=== PATIENT | female | born 1990 | race Caucasian/White ===

== ENCOUNTER 2023-01-20 18:03 | Emergency (ER) | payer BC, SELFPAY ==
[2023-01-20 18:08] VITALS: PULSE 96; RESP 18; TEMP 36.4; O2SAT 100; BMI 28.4
--- NOTE | 2023-01-20 18:20 | CT_ITS ---
The [address] [address] Patient Name: WILMER AMOS MRN: [id number] date: 1990 Sex: F Assigned Patient Location: ED.MAIN Current Patient Location: ED.MAIN Accession/Order Number: [id number] Exam Date: 01/20/2023 18:33 Report Date: 01/20/2023 19:12 At the request of: SANTY AVILES Procedure: CT head/brain wo con EXAM: CT head/brain wo con HISTORY: severe headache COMPARISON: None. TECHNIQUE: Noncontrast head CT is performed FINDINGS: No hemorrhage or edema. No mass effect or midline shift. Mastoid air cells and paranasal sinuses otherwise clear. Normal ventricular size. Normal grullon-white matter differentiation CT/CT head/brain wo con IMPRESSION: No acute intracranial abnormality Electronically authenticated by: STEPH MARSH Date: 01/20/2023 19:12
[2023-01-20 18:24] VITALS: BP 104/78
--- NOTE | 2023-01-20 18:29 | ED.GENADUL1 ---
Documented by User: BETSY Gary 01/20/23 19:29 HPI - General Adult General Chief complaint: Headache Stated complaint: HEADACHE Time Seen by Provider: 01/20/23 18:08 Source: patient Mode of arrival: walk-in Limitations: no limitations Related Data Previous Rx's Medication Instructions Recorded ondansetron HCl 4 mg tablet 4 mg PO Q6H PRN nausea and 01/20/23 vomiting #12 tabs Allergies Allergy/AdvReac Type Severity Reaction Status Date / Time fluoxetine [From Prozac] AdvReac Intermediate Verified 01/20/23 18:08 Exam Constitutional Vital Signs, click to edit/add: Last Vital Signs Temp 97.5 F L 01/20/23 18:08 Pulse 96 H 01/20/23 18:08 Resp 18 01/20/23 18:08 BP 104/78 01/20/23 18:24 Pulse Ox 100 01/20/23 18:08 Course Vital Signs Vital signs: Vital Signs Temperature 97.5 F L 01/20/23 18:08 Pulse Rate 96 H 01/20/23 18:08 Respiratory Rate 18 01/20/23 18:08 Pulse Oximetry 100 01/20/23 18:08 Temperature 97.5 F L 01/20/23 18:08 Pulse Rate 96 H 01/20/23 18:08 Respiratory Rate 18 01/20/23 18:08 Blood Pressure 104/78 01/20/23 18:24 Pulse Oximetry 100 01/20/23 18:08 Medical Decision Making [facility] Narrative Medical decision making narrative: patient presents with concerns of migraine headache, states she awoke with symptoms this morning tried to go to work and symptoms came progressively worse. Patient states her last migraine was approximately six months to a year ago. Patient states she cannot recall the last time her migraine was is painful and rates it a 10/10 but not the worst headache of her life. Patient notes light sensitivity and noise sensitivity. 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 Patient sees neurology at and has not started any medication due to the infrequency of her symptoms. Patient appears uncomfortable, given IV fluid bolus Reglan 10 mg IV, 25 mg Benadryl IV and Toradol 30 mg IV. She denies chance of with prior hysterectomy. Patient reevaluated after head CT scan and notes her pain now is down to a 2/10. She has been sleeping comfortably and easily arousable. Patient agreeable to discharge home with symptom improvement. She'll be given a note for work. The patient is to followup with primary care physician/neurology in next 2-3 days or to return to the emergency department should any of the signs or symptoms worsen or new symptoms develop. Patient had questions answered. The patient agrees with the following Diagnosis and Treatment plan and the patient will be discharged home. Lab Data Labs: Lab Results 01/20/23 Range/Units 18:25 WBC 9.7 (4.0-11.0) 10^3/uL RBC 4.23 (4.20-5.40) 10^6/uL Hgb 13.2 (12.0-16.0) g/dL Hct 38.7 (36.0-48.0) % MCV 91.5 (81.0-99.0) fL MCH 31.2 (26.7-34.0) pg MCHC 34.1 (29.9-35.2) g/dL RDW 11.8 (11.0-15.0) % Plt Count 400 (150-450) 10^3/uL MPV 9.1 L (9.5-13.5) fL Neut % (Auto) 62.0 (43.0-75.0) % Lymph % (Auto) 28.4 (20.5-60.0) % Baylor % (Auto) 7.9 (1.7-12.0) % Eos % (Auto) 1.2 (0.9-7.0) % Baso % (Auto) 0.2 (0.2-2.0) % Neut # (Auto) 6.0 (1.4-6.5) 10^3/uL Lymph # (Auto) 2.8 (1.2-3.8) 10^3/uL [facility] # (Auto) 0.8 (0.3-0.8) 10^3/uL Eos # (Auto) 0.1 (0.0-0.7) 10^3/uL Baso # (Auto) 0.0 (0.0-0.1) 10^3/uL Abs Immat Gran (auto) 0.03 (0.00-0.03) 10^3/uL Imm/Tot Granulo (auto) 0.3 (0.0-0.5) % Sodium 141 (136-145) mmol/L Potassium 3.6 (3.5-5.1) mmol/L Chloride 105 (98-107) mmol/L Carbon Dioxide 25.3 (21.0-32.0) mmol/L Anion Gap 14.3 BUN 15.0 (7.0-18.0) mg/dL Creatinine 0.62 (0.55-1.02) mg/dL Est GFR ( Amer) >60 (>=60) Est GFR (Non-Af Amer) >60 (>=60) BUN/Creatinine Ratio 24.2 Glucose 92 (74-106) mg/dL Calcium 9.0 (8.5-10.1) mg/dL Imaging Data CT scan - head: Radiologist's impression: At the request of: SANTY AVILES Procedure: CT head/brain wo con EXAM: CT head/brain wo con HISTORY: severe headache COMPARISON: None. TECHNIQUE: Noncontrast head CT is performed FINDINGS: No hemorrhage or edema. No mass effect or midline shift. Mastoid air cells and paranasal sinuses otherwise clear. Normal ventricular size. Normal grullon-white matter differentiation IMPRESSION: No acute intracranial abnormality Electronically authenticated by: STEPH MARSH Date: 01/20/2023 19:12 Discharge Plan Discharge Chief Complaint: Headache Clinical Impression: Migraine, Headache Patient Disposition: Home, Self-Care Time of Disposition Decision: 19:26 Condition: Good Mode of Transportation: Private Vehicle Prescriptions / Home Meds: New ondansetron HCl 4 mg tablet 4 mg PO Q6H PRN (Reason: nausea and vomiting) Qty: 12 0RF Instructions: Migraine Headache (ED) Stand Alone Forms: Portal Instructions Referrals: [facility] [Physician] - 1 week ELANA FARLEY [Primary Care Provider] - 1 week Discharge Date/Time: 01/20/23 20:03 Documented by User: Grace Dawson MD 01/21/23 05:38 HPI - General Adult General Chief complaint: Headache Stated complaint: HEADACHE Time Seen by Provider: 01/20/23 18:08 Related Data Previous Rx's Medication Instructions Recorded ondansetron HCl 4 mg tablet 4 mg PO Q6H PRN nausea and 01/20/23 vomiting #12 tabs Allergies Allergy/AdvReac Type Severity Reaction Status Date / Time fluoxetine [From Prozac] AdvReac Intermediate Verified 01/20/23 18:08 Exam Constitutional Vital Signs, click to edit/add: Last Vital Signs Temp 97.5 F L 01/20/23 18:08 Pulse 96 H 01/20/23 18:08 Resp 18 01/20/23 18:08 BP 104/78 01/20/23 18:24 Pulse Ox 100 01/20/23 18:08 Course Vital Signs Vital signs: Vital Signs Temperature 97.5 F L 01/20/23 18:08 Pulse Rate 96 H 01/20/23 18:08 Respiratory Rate 18 01/20/23 18:08 Pulse Oximetry 100 01/20/23 18:08 Temperature 97.5 F L 01/20/23 18:08 Pulse Rate 96 H 01/20/23 18:08 Respiratory Rate 18 01/20/23 18:08 Blood Pressure 104/78 01/20/23 18:24 Pulse Oximetry 100 01/20/23 18:08 Medical Decision Making [facility] Narrative Medical decision making narrative: patient presents with concerns of migraine headache, states she awoke with symptoms this morning tried to go to work and symptoms came progressively worse. Patient states her last migraine was approximately six months to a year ago. Patient states she cannot recall the last time her migraine was is painful and rates it a 10/10 but not the worst headache of her life. Patient notes light sensitivity and noise sensitivity. 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 Patient sees neurology at and has not started any medication due to the infrequency of her symptoms. Patient appears uncomfortable, given IV fluid bolus Reglan 10 mg IV, 25 mg Benadryl IV and Toradol 30 mg IV. She denies chance of with prior hysterectomy. Patient reevaluated after head CT scan and notes her pain now is down to a 2/10. She has been sleeping comfortably and easily arousable. Patient agreeable to discharge home with symptom improvement. She'll be given a note for work. The patient is to followup with primary care physician/neurology in next 2-3 days or to return to the emergency department should any of the signs or symptoms worsen or new symptoms develop. Patient had questions answered. The patient agrees with the following Diagnosis and Treatment plan and the patient will be discharged home. Attending physician attestation I have reviewed the mid-level documentation, agree with the documentation, medical decision making and treatment plan as outlined by the mid-level provider. Lab Data Labs: Lab Results 01/20/23 Range/Units 18:25 WBC 9.7 (4.0-11.0) 10^3/uL RBC 4.23 (4.20-5.40) 10^6/uL Hgb 13.2 (12.0-16.0) g/dL Hct 38.7 (36.0-48.0) % MCV 91.5 (81.0-99.0) fL MCH 31.2 (26.7-34.0) pg MCHC 34.1 (29.9-35.2) g/dL RDW 11.8 (11.0-15.0) % Plt Count 400 (150-450) 10^3/uL MPV 9.1 L (9.5-13.5) fL Neut % (Auto) 62.0 (43.0-75.0) % Lymph % (Auto) 28.4 (20.5-60.0) % Baylor % (Auto) 7.9 (1.7-12.0) % Eos % (Auto) 1.2 (0.9-7.0) % Baso % (Auto) 0.2 (0.2-2.0) % Neut # (Auto) 6.0 (1.4-6.5) 10^3/uL Lymph # (Auto) 2.8 (1.2-3.8) 10^3/uL [facility] # (Auto) 0.8 (0.3-0.8) 10^3/uL Eos # (Auto) 0.1 (0.0-0.7) 10^3/uL Baso # (Auto) 0.0 (0.0-0.1) 10^3/uL Abs Immat Gran (auto) 0.03 (0.00-0.03) 10^3/uL Imm/Tot Granulo (auto) 0.3 (0.0-0.5) % Sodium 141 (136-145) mmol/L Potassium 3.6 (3.5-5.1) mmol/L Chloride 105 (98-107) mmol/L Carbon Dioxide 25.3 (21.0-32.0) mmol/L Anion Gap 14.3 BUN 15.0 (7.0-18.0) mg/dL Creatinine 0.62 (0.55-1.02) mg/dL Est GFR ( Amer) >60 (>=60) Est GFR (Non-Af Amer) >60 (>=60) BUN/Creatinine Ratio 24.2 Glucose 92 (74-106) mg/dL Calcium 9.0 (8.5-10.1) mg/dL Discharge Plan Discharge Chief Complaint: Headache Clinical Impression: Migraine, Headache Patient Disposition: Home, Self-Care Time of Disposition Decision: 19:26 Condition: Good Mode of Transportation: Private Vehicle Prescriptions / Home Meds: New ondansetron HCl 4 mg tablet 4 mg PO Q6H PRN (Reason: nausea and vomiting) Qty: 12 0RF Instructions: Migraine Headache (ED) Stand Alone Forms: Portal Instructions Referrals: [facility] [Physician] - 1 week ELANA FARLEY [Primary Care Provider] - 1 week Discharge Date/Time: 01/20/23 20:03
[2023-01-20 18:34] LABS: Basophils Percent Auto 0.2 % (0.2-2.0); Eosinophils Absolute Auto 0.1 10^3/uL (0.0-0.7); Eosinophils Percent Auto 1.2 % (0.9-7.0); Hematocrit 38.7 % (36.0-48.0); Hemoglobin 13.2 g/dL (12.0-16.0); Immature Granulocytes Abs Auto 0.03 10^3/uL (0.00-0.03); Immature Granulocytes Pct Auto 0.3 % (0.0-0.5); Lymphocytes Absolute Auto 2.8 10^3/uL (1.2-3.8); Lymphocytes Percent Auto 28.4 % (20.5-60.0); Mean Corpuscular HGB Conc 34.1 g/dL (29.9-35.2); Mean Corpuscular Hemoglobin 31.2 pg (26.7-34.0); Mean Corpuscular Volume 91.5 fL (81.0-99.0); Mean Platelet Volume 9.1 fL (9.5-13.5); Monocytes Absolute Auto 0.8 10^3/uL (0.3-0.8); Monocytes Percent Auto 7.9 % (1.7-12.0); Platelet Count 400 10^3/uL (150-450); Red Blood Count 4.23 10^6/uL (4.20-5.40); Red Cell Distribution Width 11.8 % (11.0-15.0); White Blood Count 9.7 10^3/uL (4.0-11.0)
[2023-01-20 18:40] LABS: Anion Gap 14.3; BUN Creatinine Ratio 24.2; Carbon Dioxide 25.3 mmol/L (21.0-32.0); Chloride 105 mmol/L (98-107); Estimated GFR (African America >60 (>=60); Estimated GFR (Non-African Ame >60 (>=60); Glucose 92 mg/dL (74-106); Potassium 3.6 mmol/L (3.5-5.1); Sodium 141 mmol/L (136-145)
[2023-01-20] MEDS: KETOROLAC TROMETHAMINE 30 MG/ML VIAL IVP (18:47)
[2023-01-20] MEDS: METOCLOPRAMIDE HCL 10 MG/2 ML VIAL IVP (18:47)
[2023-01-20] MEDS: 0.9 % SODIUM CHLORIDE 1,000 ML 999 ML IV (18:47)
[2023-01-20] MEDS: DIPHENHYDRAMINE HCL 50 MG/ML (1ML) VIAL 25 MG IV (18:48)
== END 2023-01-20 20:03 | disposition home or self-care (01) ==
PROVIDERS: Personal Emergency Response Attendant; Emergency Provider Emergency Medicine; PCP Family Medicine
DX: G43.909 Migraine, unspecified, not intractable, without status migrainosus (principal)
CPT/HCPCS: 36415; 70450; 80048; 85025; 96374; 96375; 99285

== ENCOUNTER 2023-04-24 13:39 | Emergency (ER) | payer BC, SELFPAY ==
[2023-04-24 14:06] VITALS: BP 125/84; PULSE 74; RESP 20; TEMP 36.9; O2SAT 100; BMI 24.4
[2023-04-24 14:18] VITALS: BP 132/97; PULSE 88; RESP 18; TEMP 36.9; O2SAT 100; BMI 23.0
--- NOTE | 2023-04-24 14:24 | XR_ITS ---
The [address] [address] Patient Name: WILMER AMOS MRN: [id number] date: 1990 Sex: F Assigned Patient Location: ER Current Patient Location: ER Accession/Order Number: [id number] Exam Date: 04/24/2023 14:50 Report Date: 04/24/2023 15:15 At the request of: LILIBETH GRIFFIN Procedure: XR wrist RT min 3V IMAGES REVIEWED: XR wrist RT min 3V COMPARISON: None available. CLINICAL INDICATION: pain FINDINGS/IMPRESSION: Slight positive ulnar variance suggested. Otherwise unremarkable radiographic appearance of the right wrist. Electronically authenticated by: JADIEL MCMILLAN Date: 04/24/2023 15:15
--- NOTE | 2023-04-24 14:25 | ED.EXTPRO1 ---
HPI - Extremity Problem General Chief complaint: Extremity Problem, Nontraumatic Stated complaint: UPPER EXTREMITY PAIN RIGHT WRIST Time Seen by Provider: 04/24/23 14:20 Source: patient Mode of arrival: walk-in Limitations: no limitations History of Present Illness HPI Narrative: 32 year old female presents to the ED for pain to her right medial wrist. Onset was a few days ago. Denies fever, chills, injury, weakness, N/T. She has been wearing a brace without improvement. 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 Rates her pain 6/10 at this time. Related Data Previous Rx's Medication Instructions Recorded ondansetron HCl 4 mg tablet 4 mg PO Q6H PRN nausea and 01/20/23 vomiting #12 tabs naproxen 500 mg tablet (Naprosyn) 500 mg PO Q12H PRN pain #14 tabs 04/24/23 Allergies Allergy/AdvReac Type Severity Reaction Status Date / Time fluoxetine [From Prozac] AdvReac Intermediate Verified 04/24/23 14:17 Review of Systems ROS Constitutional Denies: fever or chills Cardiovascular Denies: chest pain Respiratory Denies: shortness of breath Musculoskeletal Reports: extremity pain; Denies: neck pain, extremity swelling or muscle weakness Neurological Denies: numbness in extremities or weakness in extremities PFSH PFSH Social History Smoking status: Never smoker Exam Constitutional Vital Signs, click to edit/add: Last Vital Signs Temp 98.4 F 04/24/23 14:18 Pulse 88 04/24/23 14:18 Resp 18 04/24/23 14:18 BP 132/97 H 04/24/23 14:18 Pulse Ox 100 04/24/23 14:18 O2 Del Method Room Air 04/24/23 14:18 Common normals: no apparent distress and oriented x3 General appearance: cooperative Eye Common normals: no scleral icterus Neck & C-Spine Common normals: supple Chest Chest: symmetrical chest wall rise Respiratory Common normals: normal respiratory effort Effort & inspection: able to speak in complete sentences Cardio Peripheral pulses: radial pulses present and ulnar pulses present Extremity Right upper extremity: wrist Right wrist: palpation (Tenderness to medial wrist. No swelling or deformity.), ROM (Pain increases with movement, palpation. ) and other (No erythema, wounds to right wrist. Distal sensation intact. ) and hand and digits Right hand and digits: ROM exam (Full ROM to right hand, digits.) Course Vital Signs Vital signs: Vital Signs Temperature 98.5 F 04/24/23 14:06 Pulse Rate 74 04/24/23 14:06 Respiratory Rate 20 04/24/23 14:06 Blood Pressure 125/84 04/24/23 14:06 Pulse Oximetry 100 04/24/23 14:06 Oxygen Delivery Method Room Air 04/24/23 14:06 Temperature 98.4 F 04/24/23 14:18 Pulse Rate 88 04/24/23 14:18 Respiratory Rate 18 04/24/23 14:18 Blood Pressure 132/97 H 04/24/23 14:18 Pulse Oximetry 100 04/24/23 14:18 Oxygen Delivery Method Room Air 04/24/23 14:18 MDM - Extremity (Nontraumatic) MDM Narrative Medical decision making narrative: X-ray showed slight positive ulnar variance; otherwise unremarkable images. Findings were discussed with the patient. She has a wrist brace with her that she is going to wear for her discomfort. A prescription was provided for naprosyn. Follow up with Dr. Mathis, orthopedist, for a recheck, further evaluation and treatment. Medical Records Attestation: I reviewed the patient's medical records. Imaging Data Right Wrist X-ray: Attestation: I have reviewed the pertinent imaging results. Radiologist's impression: Procedure: XR wrist RT min 3V IMAGES REVIEWED: XR wrist RT min 3V COMPARISON: None available. CLINICAL INDICATION: pain FINDINGS/IMPRESSION: Slight positive ulnar variance suggested. Otherwise unremarkable radiographic appearance of the right wrist. Electronically authenticated by: JADIEL MCMILLAN Date: 04/24/2023 15:15 Discharge Plan Discharge Chief Complaint: Extremity Problem, Nontraumatic Clinical Impression: Acute wrist pain Patient Disposition: Home, Self-Care Time of Disposition Decision: 15:24 Condition: Good Mode of Transportation: Private Vehicle Prescriptions / Home Meds: New naproxen [Naprosyn] 500 mg tablet 500 mg PO Q12H PRN (Reason: pain) Qty: 14 0RF No Action ondansetron HCl 4 mg tablet 4 mg PO Q6H PRN (Reason: nausea and vomiting) Qty: 12 0RF Instructions: Arthralgia (ED), Wrist Sprain (ED) Additional Instructions: Follow up with Dr. Mathis. Stand Alone Forms: Portal Instructions Referrals: ELANA FARLEY [Primary Care Provider] - 1 week Stevie Mathis MD [Physician] - As soon as possible
--- NOTE | 2023-04-24 14:41 | PC.NURSE ---
Pain to right wrist; slight swelling noted to underside of wrist, pulses present.
== END 2023-04-24 15:29 | disposition home or self-care (01) ==
PROVIDERS: Emergency Provider Emergency Medicine; PCP Family Medicine
DX: M25.531 Pain in right wrist (principal)
CPT/HCPCS: 73110; 99283

== ENCOUNTER 2024-11-30 19:28 | Emergency (ER) | payer BC, SELFPAY ==
[2024-11-30 19:31] VITALS: BP 152/103; PULSE 86; TEMP 36.5; O2SAT 98; BMI 25.6
--- OUTSIDE RECORDS SUMMARY | 2024-11-30 19:39 | XMS_ITS | Encounter Summary ---
Author Organization [facility] Address [address] [facility] [place] [address] Care Team Providers Care Scissors Grinder Name Role Phone Malick Roberts MD Primary Care Provider Candie Kenney NP Unavailable Lacie Bonds [employer] SUPER[employer]OR Unavailable [phone] Lacie Bonds [employer] SUPERVISOR Unavailable [phone] Sowmya Larson [facility] Unavailable Brodie Yoo DO Unavailable Encounter Details Date Type Department Care Team (Late st Contact Info) Description 05/22/2023 Abstract [facility] [address] [place] [address] Ratna Reynoso [employer] SUPER[employer]OR Social History Tobacco Use Types Packs/Day Years Used Date Smoking Tobacco: Never Smokeless Tobacco: Never Tobacco Cessation:Counseling Given: Not Answered Alcohol Use Standard Drinks/Week Comments Yes 0 (1 standard drink = 0.6 oz pure alcohol) 1-2 drinks monthly or less, caffeine intake: more than 4 cups per day, 2 cans pop daily PHQ-2 Answer Date Recorded Patient Health Questionnaire-2 Score 0 01/15/2023 Comments No Sex and Gender Information Value Date Recorded Sex Assigned at Not on file Legal Sex Female 6:45 PM EDT Gender Identity Female 08/15/2022 6:45 PM EDT Sexual Orientation Not on file COVID-19 Exposure Response Date Recorded In the last 10 days, have yo u been in contact with someone who was confirmed or suspected to have Coronavirus/COVID-19? No / Unsure 05/06/2023 1:00 PM EST documented as of this encounter Plan of Treatment Upcoming Encounters Date Type Department Care Team (Late st Contact Info) Description 12/02/2024 3:40 PM EDT Office Visit [facility] [address] [place] [phone] Lacie Bonds, GINA [address] [place] [phone] 10/20/2025 9:30 AM EDT Office Visit [facility] [address] [place] [address] Tatum Castano MD [address] [place] [address] documented as of this encounter Visit Diagnoses Not on filedocumented in this encounter Care Teams Scissors Grinder Relationship Specialty Start Date End Date Malick Roberts MD [address] [place] [address] PCP - General Family Medicine 05/06/23 Lacie Bonds NP [address] [place] [phone] PCP - [employer] 02/02/24 5 Brodie Yoo DO [address] [place] [address] PCP - [employer] 07/04/23 Candie Kenney NP [address] [place] [address] Nurse Practitioner Family Medicine 05/06/23 11/26/24 Lacie Bonds, [employer] SUPERVISOR [address] [place] [address] Nurse Practitioner Pulmonary Disease 05/06/23 Sowmya Larson, [facility] [address] [place] [address] Equipment Scheduler Behavioral Health 06/03/24 documented as of this encounter
--- OUTSIDE RECORDS SUMMARY | 2024-11-30 19:39 | XMS_ITS | Encounter Summary ---
Author Organization [facility] Address [address] [facility] [place] [address] Care Team Providers Care Customizer Name Role Phone [place] DO Primary Care Provider [phone] Malick Roberts MD Primary Care Provider [phone] Candie Kenney RETORT FORKER Unavailable Lacie Bonds RETORT FORKER Unavailable [phone] Lacie Bonds RETORT FORKER Unavailable [phone] Sowmya Larson [facility] Unavailable [phone] Brodie Yoo DO Unavailable [phone] Encounter Details Date Type Department Care Team (Late st Contact Info) Description 03/14/2023 Orders Only [facility] [address] [facility] [address] [place] [address] Barb Guo MA Social History Tobacco Use Types Packs/Day Years Used Date Smoking Tobacco: Never Smokeless Tobacco: Never Alcohol Use Standard Drinks/Week Comments Not Currently 0 (1 standard drink = 0.6 oz pure alcohol) caffeine intake: more than 4 cups per day, 2 cans pop daily PHQ-2 Answer Date Recorded Patient Health Questionnaire-2 Score 0 01/15/2023 Comments Unknown Sex and Gender Information Value Date Recorded Sex Assigned at Not on file Legal Sex Female 6:45 PM EDT Gender Identity Female 08/15/2022 6:45 PM EDT Sexual Orientation Not on file documented as of this encounter Plan of Treatment Upcoming Encounters Date Type Department Care Team (Late st Contact Info) Description 12/02/2024 3:40 PM EDT Office Visit [facility] [address] [place] [phone] Lacie Bonds NP [address] [place] [phone] 10/20/2025 9:30 AM EDT Office Visit [facility] [address] [place] [phone] Tatum Castano MD [address] [place] [address] documented as of this encounter Visit Diagnoses Not on filedocumented in this encounter Care Teams Customizer Relationship Specialty Start Date End Date Mt Smith DO [address] [place] [address] PCP - General Family Medicine 11/14/22 05/05/23 Malick Roberts MD [address] [place] [address] PCP - General Family Medicine 05/06/23 Lacie Bonds RETORT FORKER [address] [place] [phone] PCP - [employer] 02/02/24 5 Brodie Yoo DO [address] [place] [address] PCP - [employer] 07/04/23 Candie Kenney NP [address] [place] [address] Nurse Practitioner Family Medicine 05/06/23 11/26/24 Lacie Bonds, [employer] FORKER [address] [place] [address] Nurse Practitioner Pulmonary Disease 05/06/23 Sowmya Larson, [facility] [address] [place] [address] Wheelchair Driver Behavioral Health 06/03/24 documented as of this encounter
--- OUTSIDE RECORDS SUMMARY | 2024-11-30 19:39 | XMS_ITS | Encounter Summary ---
Author Organization [facility] Address [address] [facility] [place] [address] Care Team Providers Care V Belt Mold Assembler And Curer Name Role Phone Malick Roberts MD Primary Care Provider [phone] Candie Kenney NP Unavailable Lacie Bonds TAPE RECORDING MACHINE OPERATOR Unavailable Sowmya Larson [facility] Unavailable [phone] Encounter Details Date Type Department Care Team (Late st Contact Info) Description 09/07/2024 Orders Only [facility] [address] [place] [address] Lacie Bonds, TAPE RECORDING MACHINE OPERATOR [address] [place] [address] Cough in adult (Primary Dx) Social History Tobacco Use Types Packs/Day Years Used Date Smoking Tobacco: Never Smokeless Tobacco: Never Alcohol Use Standard Drinks/Week Comments Yes 4 (1 standard drink = 0.6 oz pure alcohol) Just a few bloody elvis at home Social Connection and Isolat ion Panel [NHANES] Answer Date Recorded In a typical week, how many times do you talk on the phone with family, friends, or neighbors? More than three times a week 08/05/2023 How often do you get togethe r with friends or relatives? Never 08/05/2023 How often do you attend [facility] or adventist services? Never 08/05/2023 Do you belong to any clubs o r organizations such as rastafari groups, unions, fraternal or athletic groups, or school groups? No 08/05/2023 How often do you attend meet ings of the clubs or organizations you belong to? Never 08/05/2023 Are you , , di vorced, , never , or living with a partner? 08/05/2023 AUDIT-C Answer Date Recorded Q1: How often do you have a drink containing alcohol? Never 08/05/2023 Q2: How many drinks containi ng alcohol do you have on a typical day when you are drinking? Patient does not drink Q3: How often do you have si x or more drinks on one occasion? Less than monthly 08/05/2023 Overall Financial Resource Strain (CARDIA) Answe r Date Recorded How hard is it for you to pa y for the very basics like food, housing, medical care, and heating? Not hard at all 08/05/2023 PHQ-2 Answer Date Recorded Patient Health Questionnaire-2 Score 0 12/04/2023 [facility] - Occupational Stress Questionnaire Answer Date Recorded Do you feel stress - tense, restless, nervous, or anxious, or unable to sleep at night because your mind is troubled all the time - these days? To some extent 08/05/2023 Exercise Vital Sign Answer Date Recorde d On average, how many days pe r week do you engage in moderate to strenuous exercise (like a brisk walk)? 5 days 08/05/2023 On average, how many minutes do you engage in exercise at this level? 150+ min 08/05/2023 Hunger Vital Sign Answer Date Recorded Within the past 12 months, y ou worried that your food would run out before you got the money to buy more. Never true 08/05/19 24 Within the past 12 months, t he food you bought just didn't last and you didn't have money to get more. Never true 08/05/2023 PRAPARE - Transportation Answer Date Re corded In the past 12 months, has l ack of transportation kept you from medical appointments or from getting medications? No 09/2023 In the past 12 months, has l ack of transportation kept you from meetings, work, or from getting things needed for daily living? No 08/05/2023 Housing Stability Vital Sign Answer Jesus e Recorded In the last 12 months, was t here a time when you were not able to pay the mortgage or rent on time? No 08/05/2023 In the last 12 months, how many places have you lived? 1 08/05/2023 In the last 12 months, was t here a time when you did not have a steady place to sleep or slept in a mcc (including now)? No 08/05/2023 Comments No Sex and Gender Information Value [...] Visit [facility] [address] [place] [address] aLcie Bonds NP [address] [place] [address] 10/20/2025 9:30 AM EDT Office Visit [facility] [address] [place] [address] Tatum Castano MD [address] [place] [address] documented as of this encounter Visit Diagnoses Diagnosis Cough in adult- Primary documented in this encounter Care Teams V Belt Mold Assembler And Curer Relationship Specialty Start Date End Date Malick Roberts MD [address] [place] [address] PCP - General Family Medicine 05/06/23 Candie Kenney NP [address] [place] [address] Nurse Practitioner Family Medicine 05/06/23 11/26/24 Lacie Bonds NP [address] [place] [address] Nurse Practitioner Pulmonary Disease 05/06/23 Sowmya Larson, [facility] [address] [place] [address] Wire Dropper Behavioral Health 06/03/24 documented as of this encounter
--- OUTSIDE RECORDS SUMMARY | 2024-11-30 19:39 | XMS_ITS | Clinical Summary ---
Author Organization [facility] Address [address] [place] [address] Phone Care Team Providers Care Registered Clinical Dietitian Name Role Phone Unavailable Primary Care Provider Unavailabl e Allergies Active Allergy Reactions Criticality Noted Date Comments Fluoxetine Other 01/14/2023 Other Reaction(s): Panic Attack Medications amphetamine-dex troamphetamine (Adderall) 20 mg tablet Take 1 tablet (20 mg) by mouth once daily. 06/12/2023 Active amphetamine-dex troamphetamine XR (Adderall XR) 30 mg 24 hr capsule Take 1 capsule (30 mg) by mouth once daily. 05/16/2023 Active valACYclovir (Valtrex) 500 mg tablet Take 1 tablet (500 mg) by mouth 2 times a day. Active rimegepant (Nurtec ODT) 75 mg tablet,disinteg rating Take 1 tablet (75 mg) by mouth if needed (migraine). Active Social History Tobacco Use Types Packs/Day Years Used Date Smoking Tobacco: Never Smokeless Tobacco: Never Tobacco Cessation:Counseling Given: No Comments Unknown Sex and Gender Information Value Date Recorded Sex Assigned at Not on file Legal Sex Female 3:08 PM EST Gender Identity Not on file Sexual Orientation Not on file Plan of Treatment Health Maintenance Due Date Last Done Comments HIV Screening 1989 Yearly Adult Physical 1989 MMR Vaccines (1 of 1 - Stand candy series) 1990 Varicella Vaccines (1 of 2 - 13+ 2-dose series) 2002 Hepatitis C Screening 09/02/2007 Hepatitis B Vaccines (1 of 3 - 19+ 3-dose series) 2008 Cervical Cancer Screening 2010 HPV/Cotest 2010 Pap Smear 2010 COVID-19 Vaccine (1 - 2023-2 5 season) 2024 Influenza Vaccine (Season Ended) 2025 Lipid Panel 08/07/2028 08/08/2023 DTaP/Tdap/Td Vaccines (2 - T d or Tdap) 09/26/2028 09/26/2018 Zoster Vaccines (1 of 2) 09/02/2039 HIB Vaccines Aged Out No longer eligi ble based on patient's age to complete this topic HPV Vaccines (No Doses Required) Completed Hepatitis A Vaccines Aged Out No long er eligible based on patient's age to complete this topic IPV Vaccines Aged Out No longer eligi ble based on patient's age to complete this topic Meningococcal Vaccine Aged Out No carolyn rahul eligible based on patient's age to complete this topic Pneumococcal Vaccine: Pediat rics and At-Risk Adult Patients Aged Out No longer marti gible based on patient's age to complete this topic Rotavirus Vaccines Aged Out No longer eligible based on patient's age to [place] [address] [place] [address] [facility] [place] [address] [facility]
--- OUTSIDE RECORDS SUMMARY | 2024-11-30 19:39 | XMS_ITS | Encounter Summary ---
Author Organization [facility] Address [address] [facility] [facility] [place] [address] Care Team Providers Care Cradle Slide Maker Name Role Phone Malick Roberts MD Primary Care Provider Candie Kenney NP Unavailable Lacie Bonds NATIONAL SALES CONSULTANT Unavailable [phone] Lacie Bonds NATIONAL SALES CONSULTANT Unavailable [facility] Un[facility] Brodie Yoo DO Unavailable Reason for Visit * Reason Onset Date Comments Med Refill 05/15/2023 Encounter Details Date Type Department Care Team (Late st Contact Info) Description 05/15/2023 Refill [facility] [address] [place] [address] Lacie Bonds, NATIONAL SALES CONSULTANT [address] [place] [address] Attention deficit hyperactivity disorder (ADHD), inattentive type, moderate Social History Tobacco Use Types Packs/Day Years Used Date Smoking Tobacco: Never Smokeless Tobacco: Never Alcohol Use Standard Drinks/Week Comments Never 0 (1 standard drink = 0.6 oz [...] PM EST documented as of this encounter Miscellaneous Notes * Telephone Encounter - Lacie Bonds NP - 05/16/2023 8:38 AM EST Approving, but needs appt for additional refills. * Telephone Encounter - Lacie Bonds NP - 05/16/2023 8:37 AM EST Pharmacy called and states they did not receive medication prescription for 30 XR dose. Will resend. * Telephone Encounter - Lacie Bonds NP - 05/15/2023 9:24 AM EST Medication was sent on 05/06/23 and filled on 05/08/23 documented in this encounter Plan of Treatment Upcoming Encounters Date Type Department Care Team (Late st Contact Info) Description 12/02/2024 3:40 PM EDT Office Visit [facility] [address] [place] [id number] Lacie Bonds NP [address] [place] [address] 10/20/2025 9:30 AM EDT Office Visit [facility] [address] [place] [address] Tatum Castano MD [address] [place] [address] documented as of this encounter Visit Diagnoses Diagnosis Attention deficit hyperactivity disorder (ADHD), inattentive type, moderate documented in this encounter Care Teams Cradle Slide Maker Relationship Specialty Start Date End Date Malick Roberts MD [address] [place] [address] PCP - General Family Medicine 05/06/23 Lacie Bonds, NATIONAL SALES CONSULTANT [address] [place] [address] PCP - [place] [employer] 02/02/24 5 Brodie Yoo DO [address] [place] [address] PCP - [place] [employer] 07/04/23 Candie Kenney NP [address] [place] [address] Nurse Practitioner Family Medicine 05/06/23 11/26/24 Lacie Bonds NP [address] [place] [place] [address] Nurse Practitioner Pulmonary Disease 05/06/23 Sowmya Larson, [facility] [address] [place] [address] Auto Technician Mechanic Behavioral Health 06/03/24 documented as of this encounter
--- OUTSIDE RECORDS SUMMARY | 2024-11-30 19:39 | XMS_ITS | Encounter Summary ---
Author Organization [facility] Address [address] [facility] [place] [address] Care Team Providers Care Production Lapping Machine Operator Name Role Phone Malick Roberts MD Primary Care Provider [phone] Candie Kenney NP Unavailable Lacie Bonds INTERFACE ENGINEER Unavailable Lacie Bonds INTERFACE ENGINEER Unavailable Sowmya Larson [facility] Unavailable Brodie Yoo DO Unavailable [phone] Encounter Details Date Type Department Care Team (Late st Contact Info) Description 06/10/2023 External Result Encounter [facility] [address] [place] [address] Ratna Reynoso INTERFACE ENGINEER Social History Tobacco Use Types Packs/Day Years Used Date Smoking Tobacco: Never Smokeless Tobacco: Never Alcohol Use Standard Drinks/Week Comments Yes 0 [...] [facility] [address] [place] [address] Lacie Bonds NP [address] [place] [address] 10/20/2025 9:30 AM EDT Office Visit [facility] [address] [place] [address] Tatum Castano MD [address] [place] [address] documented as of this encounter Procedures Procedure Name Priority Date/Time Associated Diagnosis Comments MR WRIST RIGHT WO IV CONTRAST 06/10/2023 11:34 AM EST documented in this encounter Results * MR wrist right wo IV contrast (06/10/2023 11:34 AM EST) Anatomical Region Laterality Modality Upper Extremities, Wrist Right Magneti c Resonance 06/10/2023 11:3 4 AM EST Narrative 06/10/2023 11:33 AM EST THIS EXAM WAS PERFORMED AT [facility] MRI Right wrist History: Pain. Pain is increasing Comparison: Technique: Multiplanar/multisequence images were obtained without contrast. Findings: Edema in the distal ulna is appreciated the ulna appears dorsally subluxed indicating at least some laxity involving the DRUJ. The adjacent TFCC is abnormal and torn. There is soft tissue edema appreciated as well along the distal ulna. The ligaments are intact. Minimal tenosynovitis involving the extensor carpi ulnaris tendon. The other extensor compartments are uninvolved. Carpal tunnel appears appropriate. No ganglion or synovial cyst. No high-grade chondromalacia or advanced osteoarthropathy is appreciated. Impression: * Reactive edema in the distal ulna is appreciated. The ulna is subluxed dorsally indicating at least laxity to the DRUJ. Injury or laxity to the dorsal plate is suspected. The TFCC is torn. Follow-up with orthopedics is suggested. Please see above discussion. Finalized by Candie Prajapati MD on 06/10/2023 11:33 AM Procedure Note Radiology, Radiologist, MD - 06/10/2023 THIS EXAM WAS PERFORMED AT [facility] Right wrist History: Pain. Pain is increasing Comparison: Technique: Multiplanar/multisequence images were obtained withoutcontrast. Findings: Edema in the distal ulna is appreciated the ulna appears dorsally subluxedindicating at least some laxity involving the DRUJ. The adjacent TFCC isabnormal and torn. There is soft tissue edema appreciated as well alongthe distal ulna. The ligaments are intact. Minimal tenosynovitis involving the extensor carpi ulnaris tendon. Theother extensor compartments are uninvolved. Carpal tunnel appears appropriate. No ganglion or synovial cyst. No high-grade chondromalacia or advanced osteoarthropathy isappreciated. Impression: * Reactive edema in the distal ulna is appreciated. The ulna is subluxeddorsally indicating at least laxity to the DRUJ. Injury or laxity to thedorsal plate is suspected. The TFCC is torn. Follow-up with orthopedicsis suggested. Please see above discussion. Finalized by Candie Prajapati MD on 06/10/2023 11:33 AM Ratna Reynoso NP IMG MRI PROCEDURES Final Resul t documented in this encounter Visit Diagnoses Not on filedocumented in this encounter Care Teams Production Lapping Machine Operator Relationship Specialty Start Date End Date Malick Roberts MD [address] [place] [address] PCP - General Family Medicine 05/06/23 Lacie Bonds NP [address] [place] [address] PCP - [place] [employer] 02/02/24 5 Brodie Yoo DO [address] [place] [address] PCP - [place] [employer] 07/04/23 Candie Kenney NP [address] [place] [address] Nurse Practitioner Family Medicine 05/06/23 11/26/24 Lacie Bonds INTERFACE ENGINEER [address] [place] [address] Nurse Practitioner Pulmonary Disease 05/06/23 Sowmya Larson, [facility] [address] [place] [address] [place] [address] Lock Fitter Behavioral Health 06/03/24 documented as of this encounter
--- OUTSIDE RECORDS SUMMARY | 2024-11-30 19:39 | XMS_ITS | Encounter Summary ---
Author Organization [facility] Address [address] [facility] [place] [address] Care Team Providers Care Urogynecology Physician Name Role Phone [place] DO Primary Care Provider [phone] Malick Roberts MD Primary Care Provider [phone] Candie Kenney NP Unavailable Lacie Bonds ROASTMASTER Unavailable [phone] Lacie Bonds ROASTMASTER Unavailable [phone] S[facility]a Larson [facility] Unavailable [phone] Brodie Yoo DO Unavailable [phone] Encounter Details Date Type Department Care Team (Late st Contact Info) Description 03/09/2023 Abstract [facility] [address] [facility] [address] [place] [phone] Dottie Arriola RO[employer]MASTER [address] [facility] [address] [place] [address] Social History Tobacco Use Types Packs/Day Years [...] SEP FM [address] [place] [address] Lacie Bonds NP [address] [place] [address] 10/20/2025 9:30 AM EDT Office Visit [facility] [address] [place] [address] aTtum Castano MD [address] [place], [place] [address] documented as of this encounter Visit Diagnoses Not on filedocumented in this encounter Care Teams Urogynecology Physician Relationship Specialty Start Date End Date Mt Smith DO [address] [place] [address] PCP - General Family Medicine 11/14/22 05/05/23 Malick Roberts MD [address] [place] [address] PCP - General Family Medicine 05/06/23 Lacie Bonds ROASTMASTER [address] [place] [address] PCP - [place] [employer] 02/02/24 Brodie Berry DO [address] [place] [address] PCP - [place] [employer] 07/04/23 Candie Kenney NP [address] [place] [address] Nurse Practitioner Family Medicine 05/06/23 11/26/24 Lacie Bonds NP [address] [place] [address] Nurse Practitioner Pulmonary Disease 05/06/23 Sowmya Larson, [facility] [address] [address] Incoming Inspector Behavioral Health 06/03/24 documented as of this encounter
--- OUTSIDE RECORDS SUMMARY | 2024-11-30 19:39 | XMS_ITS | Clinical Summary ---
Author Organization [facility] Address [address] [place] [address] Care Team Providers Care Transmission Technician Name Role Phone Malick Roberts MD Primary Care Provider [phone] Lacie Bonds RADIOGRAPHER MAMMOGRAPHER Unavailable Sowmya Larson [facility] Unavailable [phone] Allergies Active Allergy Reactions Criticality Noted Date Comments Fluoxetine 01/14/2023 Other Reaction(s): Panic Attack Medications valACYclovir (Valtrex) 500 MG tabletIndications :HSV (herpes simplex virus) infection Take 1 tablet (500 mg) by mouth in the morning and 1 tablet (500 mg) before bedtime. 60 tablet 11 08/04/19 25 026 Active methylPREDNISolon e (Medrol Dospak) 4 MG tabletsIndication s:Cough in adult Follow schedule on package instructions 21 tablet 09/08/19 25 Active amphetamine-dextr oamphetamine (Adderall) 20 MG tabletIndications :Attention deficit hyperactivity disorder (ADHD), inattentive type, moderate Take 1 tablet 3 times a day (every 4-6 hours) 90 tablet 11/03/19 25 Active amphetamine-dextr oamphetamine (Adderall) 20 MG tabletIndications :Attention deficit hyperactivity disorder (ADHD), inattentive type, moderate Take 1 tablet 3 times a day (every 4-6 hours) 90 tablet 10/07/19 25 025 Discontin ued(Reord er) Active Problems Problem Noted Date Diagnosed Date Allergic rhinitis 01/14/2023 Amenorrhea 01/14/2023 Irregular periods 01/14/2023 Missed period 01/14/2023 Anal or rectal pain 01/14/2023 Anxiety 01/14/2023 Arthralgia of upper arm 01/14/2023 Cervical paraspinal muscle spasm 01/14/2023 Cystocele, unspecified 01/14/2023 DUB (dysfunctional uterine bleeding) 01/14/2023 Fibrocystic breast disease (FCBD) 01/14/2023 Increased appetite 01/14/2023 Major depressive disorder, single episode, moder ate 01/14/2023 Menometrorrhagia 01/14/2023 Migraine without aura, intractable, with status migrainosus 01/14/2023 Assessment & Plan (03/19/2023 3:18 PM EDT): Add TPM, std., then proceed to 100 bid. Mixed hyperlipidemia 01/14/2023 Pain in female genitalia on intercourse 01/15/20 23 Paresthesia of left lower extremity 01/14/2023 Reactive depression 01/14/2023 Rectocele 01/14/2023 Tension headache 01/14/2023 Thrombosed external hemorrhoid 01/14/2023 Attention deficit hyperactiv ity disorder (ADHD), inattentive type, moderate 10/04/2022 Generalized anxiety disorder 10/04/2022 Encounters Date Type Department Care Team Description 11/02/2024 Refill [facility] [address] [place] [phone] Lacie Bonds, RADIOGRAPHER MAMMOGRAPHER Attention deficit hyperactivity disorder (ADHD), inattentive type, moderate 10/17/2024 Results Follow-Up [facility] OB [address] [facility] [address] [place] [phone] Tatum Castano MD 10/14/2024 9:30 AM EDT Office Visit [facility] OB [address] [facility] [address] [place] [address] Tatum Castano MD Encounter for gynecological examination without abnormal finding; Encounter for screening for cervical cancer; Menometrorrhagia; Cystocele, unspecified; HSV (herpes simplex virus) infection 10/14/2024 Travel 10/06/2024 Refill [facility] [address] [place] [address] Lacie Bonds, RADIOGRAPHER MAMMOGRAPHER Attention deficit hyperactivity disorder (ADHD), inattentive type, moderate 09/21/2024 Refill [facility] [address] [address] Tatum Castano MD HSV (herpes simplex virus) infection 09/07/2024 Orders Only [facility] [address] [place] [address] Lacie Bonds, RADIOGRAPHER MAMMOGRAPHER Cough in adult (Primary Dx) 08/31/2024 1:00 PM EDT Office Visit [facility] [address] [place] [address] Lacie Bonds, RADIOGRAPHER MAMMOGRAPHER Cough in adult (Primary Dx); Sore throat; Attention deficit hyperactivity disorder (ADHD), inattentive type, moderate 08/31/2024 Travel from Last 3 Months Immunizations Immunization Administration Dates Next Due Tdap 09/26/2018 Family History Medical History Relation Name Comments No Known Problems Brother ivan 1998 No Known Problems Daughter 1 linus 2007 No Known Problems Daughter 2 katarzyna 2019 Alcohol abuse Father Devan moreira 1967 cecal volvulus Father Devan moreira Stomach cancer Maternal Grandmother Diabetes Mother Michelle Moreno 53 alcohol related Mother Michelle Moreno No Known Problems Sister 1 marian 1988 No Known Problems Sister 2 leslie 1983 Relation Name Status Comments Brother ivan Alive Daughter 1 linus Alive Daughter 2 katarzyna Alive Father Devan moreira Alive Maternal Grandmother Mother Michelle Moreno Sister 1 marian Alive Sister 2 leslie Alive Social History Tobacco Use Types Packs/Day Years Used Date Smoking Tobacco: Never Smokeless Tobacco: Never Tobacco Cessation:Counseling Given: Not Answered Alcohol Use Standard Drinks/Week Comments Yes 4 [...] Never 08/05/2023 How often do you attend chur ch or baptist services? Never 08/05/2023 Do you belong to any clubs o r organizations such as congregation groups, unions, fraternal or athletic groups, or [...] Recorded Patient Health Questionnaire-2 Score 0 12/04/2023 [facility] - Occupational Stress Questionnaire Answer Date [...] place to sleep or slept in a alf (including now)? No 08/05/2023 Comments No Sex and Gender Information Value Date Recorded Sex Assigned at Not on file Legal Sex Female 6:45 PM EDT Gender Identity Female 08/15/2022 6:45 PM EDT Sexual Orientation Not on file Last Filed Vital Signs Vital Sign Reading Time Taken Comments Blood Pressure 108/76 10/14/2024 9:31 AM EDT Pulse 86 08/31/2024 1:13 PM EDT Temperature 36.7 C (98.1 F) 08/31/2024 1:13 PM EDT Respiratory Rate 20 08/31/2024 1:13 PM EDT Oxygen Saturation 99% 08/31/2024 1:13 PM EDT Inhaled Oxygen Concentration - - Weight 64.9 kg (143 lb) 10/14/2024 9:31 AM EDT Height 157.5 cm (5' 2 ) 08/31/2024 1:13 PM EDT Body Mass Index 26.16 08/31/2024 1:13 PM EDT Plan of Treatment Upcoming Encounters Date Type Department Care Team (Late st Contact Info) Description 12/02/2024 3:40 PM EDT Office Visit [facility] [address] [place] [address] Lacie Bonds, RADIOGRAPHER MAMMOGRAPHER [address] [place] [address] 10/20/2025 9:30 AM EDT Office Visit [facility] [address] [place] [address] Tatum Castano MD [address] [place] [address] Health Maintenance Due Date Last Done Comments Influenza Vaccine (Season Ended) 2025 Cervical Cancer Screening Discontinued HPV/Cotest Discontinued 10/14/2024, 11/06/2018 Pap Smear Discontinued Procedures Procedure Name Priority Date/Time Associated Diagnosis Comments IGP, APT HPV,RFX 16/18,45 Routine 10/14/2024 12:00 AM EDT Encounter for gynecological examination without abnormal finding Encounter for screening for cervical cancer POCT RAPID STREP A Routine 08/31/2024 1: 41 PM EDT Sore throat PHARYNGITIS/LARYNG ITIS (HTRX) Routine 08/31/2024 1:12 PM EDT Sore throat from Last 3 Months Results * IGP, APT HPV,RFX 16/18,45 (10/14/2024 12:00 AM EDT) Diagnosis: Comment [facility] Comment:NEGATIVE FOR INTRAEP ITHELIAL LESION OR MALIGNANCY. Specimen Adequacy: Comment [facility] Comment:Satisfactory for cornel luation. No endocervical component is identified. Clinician Provided ICD10: Comment [facility] Comment: Z01.419 Z12.4 Performed By: Comment [facility] Comment:Jasbir Llanes, Paperboard Box Maker (ASCP) Cyto Comments . [facility] Note: Comment [facility] Comment: The Pap smear is a screening test designed to aid in the detection of premalignant and malignant conditions of the uterine cervix. It is not a diagnostic procedure and should not be used as the sole means of detecting cervical cancer. Both false-positive and false-negative reports do occur. Test Methodology: Comment [facility] Comment: This liquid based ThinPrep(R) pap test was screened with the use of an image guided system. HPV Aptima Negative Negative [facility] Comment: This nucleic acid amplification test detects fourteen high-risk HPV types (16,18,31,33,35,39,45,51,52,56,58,59,66,68) without differentiation. Vaginal Fluid 10/14/2024 10/15/2024 Narrative [facility] - 10/16/2024 1:07 PM EDT Performed at: 01 - [address] [id number] Title Assistant: Nani Nguyen MD, Phone: [phone] Performed at: 02 - [address] [id number] Title Assistant: Nani Nguyen MD, Phone: [phone] Specimen Comment: No. of containers..01 ThinPrep Vial Tatum Castano MD LAB BLOOD ORDERABLES Final Res ult [facility] * POCT rapid strep A manually resulted (08/31/2024 1:41 PM EDT) [facility] Rapid Strep A Screen Negative Negative, None Detected Swab 08/31/2024 1:41 PM EDT Lacie Bonds NP POINT OF CARE TEST ENTER/EDIT ORDERABLES Edited Result - Final * PHARYNGITIS/LARYNGITIS (HTRX) (08/31/2024 1:12 PM EDT) [facility] CHLAMYDIA PNEUMONIAE (PHARYNGITIS/LARYN GITIS) 0.000 19.961 - 24.689 ppm 2024 7:17 AM EDT [facility] CHLAMYDIA PNEUMONIAE (PHARYNGITIS/LARYN GITIS) Not Detected 19.961 - 24.689 ppm 2024 7:17 AM EDT [facility] COVID-19 CORONAVIRUS (SARS-COV-2) (PHARYNGITIS/LARYN GITIS) 0.000 23.000 - 32.500 ppm 2024 7:17 AM EDT [facility] COVID-19 CORONAVIRUS (SARS-COV-2) (PHARYNGITIS/LARYN GITIS) Not Detected 23.000 - 32.500 ppm 2024 7:17 AM EDT [facility] ENTEROVIRUS D68 (PHARYNGITIS/LARYN GITIS) 0.000 23.000 - 32.117 ppm 2024 7:17 AM EDT [facility] ENTEROVIRUS D68 (PHARYNGITIS/LARYN GITIS) Not Detected 23.000 - 32.117 ppm 2024 7:17 AM EDT [facility] HUMAN METAPNEUMOVIRUS (PHARYNGITIS/LARYN GITIS) 0.000 23.000 - 32.210 ppm 2024 7:17 AM EDT [facility] HUMAN METAPNEUMOVIRUS (PHARYNGITIS/LARYN GITIS) Not Detected 23.000 - 32.210 ppm 2024 7:17 AM EDT [facility] INFLUENZA VIRUS A, B (PHARYNGITIS/LARYN GITIS) 0.000 23.000 - 30.081 ppm 2024 7:17 AM EDT [facility] INFLUENZA VIRUS A, B (PHARYNGITIS/LARYN GITIS) Not Detected 23.000 - 30.081 ppm 2024 7:17 AM EDT [facility] MYCOPLASMA PNEUMONIAE (PHARYNGITIS/LARYN GITIS) 0.000 19.961 - 24.689 ppm 2024 7:17 AM EDT [facility] MYCOPLASMA PNEUMONIAE (PHARYNGITIS/LARYN GITIS) Not Detected 19.961 - 24.689 ppm 2024 7:17 AM EDT [facility] CORONAVIRUS (NL63, OC43, HKU1) (PHARYNGITIS/LARYN GITIS) 0.000 23.000 - 31.416 ppm 2024 7:17 AM EDT [facility] CORONAVIRUS (NL63, OC43, HKU1) (PHARYNGITIS/LARYN GITIS) Not Detected 23.000 - 31.416 ppm 2024 7:17 AM EDT [facility] PARAINFLUENZA VIRUS (TYPES 1, 2, 3, 4) (PHARYNGITIS/LARYN GITIS) 0.000 23.000 - 31.313 ppm 2024 7:17 AM EDT [facility] PARAINFLUENZA VIRUS (TYPES 1, 2, 3, 4) (PHARYNGITIS/LARYN GITIS) Not Detected 23.000 - 31.313 ppm 2024 7:17 AM EDT [facility] RESPIRATORY SYNCYTIAL VIRUS (PHARYNGITIS/LARYN GITIS) 0.000 23.000 - 31.722 ppm 2024 7:17 AM EDT [facility] RESPIRATORY SYNCYTIAL VIRUS (PHARYNGITIS/LARYN GITIS) Not Detected 23.000 - 31.722 ppm 2024 7:17 AM EDT [facility] RHINOVIRUS-ENTEROV IRUS (PHARYNGITIS/LARYN GITIS) 0.000 23.000 - 32.985 ppm 2024 7:17 AM EDT [facility] RHINOVIRUS-ENTEROV IRUS (PHARYNGITIS/LARYN GITIS) Not Detected 23.000 - 32.985 ppm 2024 7:17 AM EDT [facility] STREPTOCOCCUS PYOGENES (GROUP A STREP) (PHARYNGITIS/LARYN GITIS) 0.000 19.961 - 24.689 ppm 2024 7:17 AM EDT [facility] STREPTOCOCCUS PYOGENES (GROUP A STREP) (PHARYNGITIS/LARYN GITIS) Not Detected 19.961 - 24.689 ppm 2024 7:17 AM EDT [facility] STREPTOCOCCUS DYSGALACTIAE (GROUP C AND G STREP) 0.000 19.961 - 24.689 ppm 2024 7:17 AM EDT [facility] STREPTOCOCCUS DYSGALACTIAE (GROUP C AND G STREP) Not Detected 19.961 - 24.689 ppm 2024 7:17 AM EDT [facility] ADENOVIRUS HADV-B (PHARYNGITIS/LARYN GITIS) 0.000 23.000 - 31.943 ppm 2024 7:17 AM EDT [facility] ADENOVIRUS HADV-B (PHARYNGITIS/LARYN GITIS) Not Detected 23.000 - 31.943 ppm 2024 7:17 AM EDT [facility] FUSOBACTERIUM NECROPHORUM, NUCLEATUM 0.000 19.961 - 24.689 ppm 2024 7:17 AM EDT [facility] FUSOBACTERIUM NECROPHORUM, NUCLEATUM Not Detected 19.961 - 24.689 ppm 2024 7:17 AM EDT [facility] Nasopharyngeal 08/31/2024 1: 12 PM EDT 2024 1:22 AM EDT Lacie Bonds RADIOGRAPHER MAMMOGRAPHER LAB BLOOD ORDERABLES Final Re sult [facility] [address] [place] [address] from Last 3 Months Insurance Care Teams Transmission Technician Relationship Specialty Start Date End Date Malick Roberts MD [address] [place] [address] PCP - General Family Medicine 05/06/23 Lacie Bonds, RADIOGRAPHER MAMMOGRAPHER [address] [place] [address] Nurse Practitioner Pulmonary Disease 05/06/23 Sowmya Larson, [facility] [address] [place] [address] Program Trainer Behavioral Health 06/03/24
--- OUTSIDE RECORDS SUMMARY | 2024-11-30 19:39 | XMS_ITS | Encounter Summary ---
Author Organization [facility] Address [address] [address] Care Team Providers Care Fruit Rancher Name Role Phone Olga Valdez Macho WARREN-BOAT CLEANER Unavailable Mt Smith DO Primary Care Provider Malick Roberts MD Primary Care Provider Candie Kenney WAREHOUSE HAND Unavailable Lacie Bonds WAREHOUSE HAND Unavailable [phone] Lacie Bonds WAREHOUSE HAND Unavailable [phone] Sowmya Larson [facility] Unavailable [phone] Brodie Yoo DO Unavailable [phone] Encounter Details Date Type Department Care Team (Late st Contact Info) Description 11/28/2022 Abstract [facility] [address] [facility] [address] [place] [phone] Sowmya Larson, [facility] [address] [facility] [address] [place] [address] Social History Tobacco Use Types Packs/Day Years Used Date Smoking Tobacco: Never Tobacco Cessation:Counseling Given: Not Answered Alcohol Use Standard Drinks/Week Comments Yes 1 (1 standard drink = 0.6 oz pure alcohol) caffeine intake: more than 4 cups per day, 2 cans pop daily Comments Unknown Sex and Gender Information Value [...] [facility] [address] [place] [phone] Lacie Bonds, GINA [address] [place] [address] 10/20/2025 9:30 AM EDT Office Visit [facility] [address] [place] [address] Tatum Castano MD [address] [place], [place] [phone] documented as of this encounter Visit Diagnoses Not on filedocumented in this encounter Care Teams Fruit Rancher Relationship Specialty Start Date End Date Olga Valdez, DISH UP PERSON-BOAT CLEANER [address] [place] [address] PCP - [place] [employer] 09/01/22 Mt Smith DO [address] [place] [address] PCP - General Family Medicine 11/14/22 05/05/23 Malick Roberts MD [address] [place] [address] PCP - General Family Medicine 05/06/23 Lacie Bonds, GINA [address] [place] [address] PCP - [place] [employer] 02/02/24 5 Brodie Yoo DO [address] [place] [address] PCP - [place] [employer] 07/04/23 Candie Kenney, WAREHOUSE HAND [address] [place] [address] Nurse Practitioner Family Medicine 05/06/23 11/26/24 Lacie Bonds, WAREHOUSE HAND [address] [place] [address] Nurse Practitioner Pulmonary Disease 05/06/23 Sowmya Larson, [facility] [address] [place] [address] Green Plumber Behavioral Health 06/03/24 documented as of this encounter
--- OUTSIDE RECORDS SUMMARY | 2024-11-30 19:39 | XMS_ITS | Encounter Summary ---
Author Organization [facility] Address [address] [facility] [place] [address] Care Team Providers Care Cardiology Manager Name Role Phone Mt Smith DO Primary Care Provider [phone] Malick Roberts MD Primary Care Provider Candie Kenney NATIONAL PARK TOUR GUIDE Unavailable Lacie Bonds NATIONAL PARK TOUR GUIDE Unavailable Lacie Bonds NATIONAL PARK TOUR GUIDE Unavailable [phone] Sowmya Larson [facility] Unavailable [phone] Brodie Yoo DO Unavailable [phone] Encounter Details Date Type Department Care Team (Late st Contact Info) Description 01/21/2023 Orders Only [facility] FM [address] [facility] [address] [address] [place] [address] A, Unknown Practice [address] [place] [address] Social History Tobacco Use Types Packs/Day Years Used Date Smoking Tobacco: Never Smokeless Tobacco: Never Alcohol Use Standard Drinks/Week Comments Yes 1 [...] Visit [facility] [address] [place] [address] Lacie Bonds, GINA [address] [place] [address] 10/20/2025 9:30 AM EDT Office Visit [facility] [address] [place] [address] Tatum Castano MD [address] [place] [address] documented as of this encounter Procedures Procedure Name Priority Date/Time Associated Diagnosis Comments CT HEAD/BRAIN W & WO CONTRAST Routine 01/20/2023 12:46 PM EDT documented in this encounter Results * CT HEAD/BRAIN W & WO CONTRAST (01/20/2023 12:46 PM EDT) Anatomical Region Laterality Modality Radiographic Shima ging us Unknown Practice A IMG XR PROCEDURES Final Resul t documented in this encounter Visit Diagnoses Not on filedocumented in this encounter Care Teams Cardiology Manager Relationship Specialty Start Date End Date Mt Smith DO [address] [place] [address] PCP - General Family Medicine 11/14/22 05/05/23 Malick Roberts MD [address] [place] [address] PCP - General Family Medicine 05/06/23 Lacie Bonds, GINA [address] [place] [address] PCP - [place] [employer] 02/02/24 5 Brodie Yoo DO [address] [place] [address] PCP - [place] [employer] 07/04/23 Candie Kenney NP [address] [place] [address] Nurse Practitioner Family Medicine 05/06/23 11/26/24 Lacie Bonds NATIONAL PARK TOUR GUIDE [address] [place] [address] Nurse Practitioner Pulmonary Disease 05/06/23 Sowmya Larson, [facility] [address] [place] [address] Second Facing Baster Behavioral Health 06/03/24 documented as of this encounter
--- OUTSIDE RECORDS SUMMARY | 2024-11-30 19:39 | XMS_ITS | Clinical Summary ---
Author Organization [facility] Address [id number] [address] [place] [address] Care Team Providers Care Adjunct Professor Name Role Phone Malick Roberts MD Primary Care Provider [phone] Social History Tobacco Use Types Packs/Day Years Used Date Smoking Tobacco: Never Assessed Comments Unknown Sex and Gender Information Value Date Recorded Sex Assigned at Not on file Legal Sex Female 2:09 PM EST Gender Identity Not on file Sexual Orientation Not on file Plan of Treatment Health Maintenance Due Date Last Done Comments Depression Screening 2001 Tobacco Screening 2001 Adult BMI Screening 09/02/2007 Pap Smear 2010 Influenza Vaccine 02/01/2025 DTaP,Tdap and Td Vaccines (2 - Td or Tdap) 09/26/2028 09/26/2018 Medical Devices Not on file Insurance ANTHEM ANTHEM Care Teams Adjunct Professor Relationship Specialty Start Date End Date Malick Roberts MD [address] [place] [address] PCP - General Family Medicine 06/06/23
--- OUTSIDE RECORDS SUMMARY | 2024-11-30 19:39 | XMS_ITS | Encounter Summary ---
Author Organization [facility] Address [address] [facility] [place] [place] [address] Care Team Providers Care Gang Drill Press Operator Name Role Phone Mt Smith DO Primary Care Provider [phone] Malick Roberts MD Primary Care Provider Candie Kenney VERIFYING SPECIALIST Unavailable Lacie Bonds VERIFYING SPECIALIST Unavailable [phone] Lacie Bonds VERIFYING SPECIALIST Unavailable [phone] Sowmya Larson [facility] Unavailable [phone] Brodie Yoo DO Unavailable Encounter Details Date Type Department Care Team (Late st Contact Info) Description 04/29/2023 Orders Only [facility] FM [address] [facility] [address] [place] [address] A, Unknown Practice [address] [place], [place] [phone] Social History Tobacco Use Types Packs/Day Years [...] Recorded In the last 10 days, have elizabeth u been in contact with someone who was confirmed or suspected to have Coronavirus/COVID-19? No / Unsure 04/03/2023 1:57 PM EDT documented as of this encounter Plan of Treatment Upcoming Encounters Date Type Department Care Team (Late st Contact Info) Description 12/02/2024 3:40 PM EDT Office Visit [facility] [address] [place] [address] Lacie Bonds NP [address] [place] [address] 10/20/2025 9:30 AM EDT Office Visit [facility] [address] [place] [address] Tatum Castano MD [address] [place] [address] documented as of this encounter Procedures Procedure Name Priority Date/Time Associated Diagnosis Comments XR WRIST 3+ VIEWS RIGHT Routine 04/24/2023 9:26 AM EST documented in this encounter Results * XR wrist 3+ views right (04/24/2023 9:26 AM EST) Anatomical Region Laterality Modality Upper Extremities, Wrist Right Radiogr aphic Imaging us Unknown Practice A IMG XR PROCEDURES Final Resul t documented in this encounter Visit Diagnoses Not on filedocumented in this encounter Care Teams Gang Drill Press Operator Relationship Specialty Start Date End Date Mt Smith DO [address] [place] [address] PCP - General Family Medicine 11/14/22 05/05/23 Malick Roberts MD [address] [place] [address] PCP - General Family Medicine 05/06/23 Lacie Bonds NP [address] [place] [address] PCP - [place] [employer] 02/02/24 5 Brodie Yoo DO [address] [place] [address] PCP - [place] [employer] 07/04/23 Candie Kenney NP [address] [place] [address] Nurse Practitioner Family Medicine 05/06/23 11/26/24 Lacie Bonds, VERIFYING SPECIALIST [address] [place] [address] Nurse Practitioner Pulmonary Disease 05/06/23 Sowmya Larson, [facility] [address] [place] [address] Rapid Transit Operator Behavioral Health 06/03/24 documented as of this encounter
--- OUTSIDE RECORDS SUMMARY | 2024-11-30 19:39 | XMS_ITS | Encounter Summary ---
Author Organization [facility] Address [address] [place] [address] Care Team Providers Care Restorative Coordinator Name Role Phone Malick Roberts MD Primary Care Provider Candie Kenney NP Unavailable Lacie Bonds ANALYSIS MANAGER Unavailable Sowmya Larson [facility] Unavailable [phone] Encounter Details Date Type Department Care Team (Late st Contact Info) Description 10/17/2024 Results Follow-Up [facility] [address] [facility] [address] [place] [id number] Tatum Castano MD [address] [facility] [address] [place] [address] Social History Tobacco Use Types Packs/Day Years [...] 08/05/2023 How often do you attend chur or episcopal services? Never 08/05/2023 Do you belong to any clubs o r organizations such as synagogue groups, unions, fraternal or athletic groups, or [...] Recorded Patient Health Questionnaire-2 Score 0 12/04/2023 [facility] - Occupational Stress Questionnaire Answer Date Recorded [...] place to sleep or slept in a [place] [facility] care facility (including now)? No 08/05/2023 Comments No Sex [...] [facility] [address] [place] [id number] Lacie Bonds NP [address] [place] [id number] 10/20/2025 9:30 AM EDT Office Visit [facility] [address] [place] [phone] Tatum Castano MD [address] [place] [address] documented as of this encounter Visit Diagnoses Not on filedocumented in this encounter Care Teams Restorative Coordinator Relationship Specialty Start Date End Date Malick Roberts MD [address] [place] [address] PCP - General Family Medicine 05/06/23 Candie Kenney NP [address] [place] [address] Nurse Practitioner Family Medicine 05/06/23 11/26/24 Lacie Bonds NP [address] [place] [address] Nurse Practitioner Pulmonary Disease 05/06/23 Sowmya Larson, [facility] [address] [place] [address] [facility] 06/03/24 documented as of this encounter
--- NOTE | 2024-11-30 19:41 | ED.GENADUL1 ---
HPI HPI - General Adult General Chief complaint: Headache Stated complaint: MIGRAINE, VOMITING Time Seen by Provider: 11/30/24 19:29 Source: patient Mode of arrival: walk-in Limitations: no limitations History of Present Illness HPI narrative: Patient is a 34-year-old female with a history of migraines who presents to the ER for worsening headache throughout the day today. She states that it is frontal with no associated visual changes, neck pain or back pain. No injury or trauma. She has a history of similar headaches in the past. She has had multiple episodes of vomiting. No fevers or upper respiratory symptoms. She has no concern for . She did not take any medications prior to arrival. Related Data Home Medications ?Medication ?Instructions ?Recorded ?Confirmed dextroamphetamine-amphetamine 20 11/30/24 mg tablet Previous Rx's ?Medication ?Instructions ?Recorded ketorolac 10 mg tablet 10 mg PO TID PRN pain #10 tabs 11/30/24 ondansetron 4 mg disintegrating 4 mg PO Q6H PRN nausea and 11/30/24 tablet vomiting #12 tabs Allergies Allergy/AdvReac Type Severity Reaction Status Date / Time fluoxetine (From Prozac) AdvReac Intermediate Anxiety Verified 11/30/24 19:36 Opioid HPI Opioid Management Most Recent Opioid Data: Last Pain Scale 10 Today, 19:56 Last MAR Pain Assessment Today, 19:56 Review of Systems ROS Constitutional Denies: fever or chills Eyes Reports: light sensitivity Ears, nose, mouth, and throat Denies: throat pain or nasal congestion Cardiovascular Denies: chest pain Respiratory Denies: shortness of breath or cough Gastrointestinal Reports: nausea and vomiting; Denies: abdominal pain Musculoskeletal Denies: back pain or neck pain Neurological Reports: headache; Denies: numbness in extremities or weakness in extremities Hematologic/Lymphatic Denies: easy bruising or easy bleeding PFSH PFSH Social History Smoking status: Never smoker Exam Narrative Exam Narrative: Gen.: Awake, alert, in no distress Head: Normocephalic, atraumatic ENT: Moist mucous membranes no nuchal rigidity or meningismus Respiratory: No respiratory distress Extremities: Moves extremities equally Psych: Normal mood and affect Neuro: No focal neuro deficit Skin: Warm, dry, intact Constitutional Vital Signs, click to edit/add: Last Vital Signs Temp 97.7 F 11/30/24 19:31 Pulse 86 11/30/24 19:31 Resp 18 11/30/24 19:31 BP 152/103 H 11/30/24 19:31 Pulse Ox 98 11/30/24 19:43 O2 Del Method Room Air 11/30/24 19:43 Course Vital Signs Vital signs: Vital Signs Temperature 97.7 F 11/30/24 19:31 Pulse Rate 86 11/30/24 19:31 Respiratory Rate 18 11/30/24 19:31 Blood Pressure 152/103 H 11/30/24 19:31 Pulse Oximetry 98 11/30/24 19:31 Oxygen Delivery Method Room Air 11/30/24 19:31 Temperature 97.7 F 11/30/24 19:31 Pulse Rate 86 11/30/24 19:31 Respiratory Rate 18 11/30/24 19:31 Blood Pressure 152/103 H 11/30/24 19:31 Pulse Oximetry 98 11/30/24 19:43 Oxygen Delivery Method Room Air 11/30/24 19:43 Medical Decision Making MDM Narrative Medical decision making narrative: Patient medicated with IV fluids, Reglan, Benadryl, Toradol which has worked well in the past for her per previous documentation. Patient reported that pain went from a 10/10 to 7/10. She was remedicated with Decadron and Fioricet. She is noted to appear much more comfortable, no persistent vomiting in the ER after medications. She ambulated to the bathroom. She is discharged home with prescriptions for Toradol and Zofran. Follow-up with PCP and return to the emergency department if symptoms change or worsen SUPERVISED APC VISIT, PHYSICIAN ATTESTATION: Based on the medical record the care appears appropriate. ? Medical Records Medical records reviewed: Yes I reviewed the patient's medical records Discharge Plan Discharge Chief Complaint: Headache Clinical Impression: Headache Patient Disposition: Home, Self-Care Time of Disposition Decision: 21:39 Condition: Good Prescriptions / Home Meds: New ketorolac 10 mg tablet 10 mg PO TID PRN (Reason: pain) Qty: 10 0RF ondansetron 4 mg tablet,disintegrating 4 mg PO Q6H PRN (Reason: nausea and vomiting) Qty: 12 0RF No Action dextroamphetamine-amphetamine 20 mg tablet Print Language: Colombian Instructions: Acute Headache (ED) Referrals: ELANA FARLEY [Primary Care Provider, Family Practice] - 1 week
[2024-11-30 19:43] VITALS: O2SAT 98
[2024-11-30] MEDS: 0.9 % SODIUM CHLORIDE 1,000 ML 999 ML IV (19:55)
[2024-11-30] MEDS: METOCLOPRAMIDE HCL 10 MG/2 ML VIAL IVP (19:56)
[2024-11-30] MEDS: KETOROLAC TROMETHAMINE 30 MG/ML VIAL IVP (19:56)
[2024-11-30] MEDS: DIPHENHYDRAMINE HCL 50 MG/ML VIAL 25 MG IVP (19:56)
[2024-11-30] MEDS: BUTALB/ACETAMINOPHEN/CAFFEINE 50-325-40MG TABLET 1 TAB PO (21:15)
[2024-11-30] MEDS: DEXAMETHASONE SOD PHOS 10 MG/ML VIAL IV (21:15)
[2024-11-30 21:53] VITALS: BP 125/82
== END 2024-11-30 21:55 | disposition home or self-care (01) ==
PROVIDERS: Emergency Provider Emergency Medicine; PCP Family Medicine
DX: R51.9 Headache, unspecified (principal)
CPT/HCPCS: 96361; 96374; 96375; 99284; J1100; J1200; J1885; J2765